=== PATIENT | male | born 1975 | race Caucasian/White ===

== ENCOUNTER → 2017-02-01 | Outpatient (CLI) | payer OTHER ==
--- NOTE | 2017-02-01 10:02 | REP ---
Clinical: Shortness of breath . Comparison: None . Technique: PA and lateral. Findings: The mediastinum and cardiac silhouette are normal. The lung trivedi are clear and without acute consolidation, effusion, or pneumothorax. The skeletal structures are intact and normal. Impression: 1. No acute cardiopulmonary process. Signed by Roque Rnicon MD 02/01/2017 09:53 A
== END ==
LOC: M SMT 09:34
PROVIDERS: ATTEND Nurse Practitioner Adult Health
DX: R06.02 Shortness of breath (principal)

== ENCOUNTER → 2017-03-01 | Outpatient (CLI) | payer OTHER ==
[~2017-03-01] MED LIST: METHACHOLINE KIT (J7674) INH ONE
--- NOTE | 2017-03-01 08:29 | PFTRPT ---
Site: [facility], [address] [place], [address] ID: [id number] Name: NEHAL ALBARADO III Doctor: Светлана Mcgrath Tech: Srinivasa JIMÉNEZ RRT Age: 41 Sex: Male Race: Height: 64.00 Inches Weight: 156.00 Lbs BSA: 1.76 Diagnosis: R06.02 third dose of methacholine. Pt was given four puffs of albuterol for postbronchodilator. Pre-Bronch Post-Bronch Pred Actual %Pred Actual %Chng SPIROMETRY FVC (L) 4.34 4.99 115 4.69 -6 FEV1 (L) 3.49 3.51 100 3.31 -5 FEV1/FVC (%) 80 70 87 70 FEF 25% (L/sec) 7.22 6.74 93 5.88 -12 FEF 50% (L/sec) 5.23 2.99 57 2.48 -17 FEF 75% (L/sec) 1.74 0.77 44 0.51 -33 FEF 25-75% (L/sec) 3.45 2.25 65 1.70 -24 FEF Max (L/sec) 8.88 8.66 97 9.16 5 FIVC (L) 4.77 3.73 -21 FIF 50% (L/sec) 5.25 7.12 135 7.35 3 FIF Max (L/sec) 7.31 7.94 8
== END ==
LOC: M CARPUL 07:30
PROVIDERS: ATTEND Nurse Practitioner Adult Health
DX: R06.02 Shortness of breath (principal)

== ENCOUNTER 2018-09-29 22:15 | Inpatient (IN) | payer OTHER ==
[~2018-09-29] VITALS: Ht 162.6 cm; Wt 72.6 kg
[2018-09-29] MEDS ORDERED: OMEP10CASR PO (22:34)
[2018-09-29 23:00] LABS: BASO % 0.2 % (0.0-1.0); EOS # 0.2 10^3/uL (0.0-0.50); EOS % 1.1 % (0.0-3.0); HEMATOCRIT 39.3 % (42.0-52.0); HEMOGLOBIN 13.4 g/dl (13.5-17.5); LYMPH # 2.7 10^3/uL (1.5-4.5); LYMPH % 20.9 % (24.0-44.0); MEAN CORPUSCULAR HEMOGLOBIN 30.4 pg (27.0-33.0); MEAN CORPUSCULAR HGB CONC 34.1 g/dl (32.0-36.5); MEAN CORPUSCULAR VOLUME 89.1 fl (80.0-96.0); MONO # 1.3 10^3/uL (0.0-0.8); MONO % 10.2 % (0.0-5.0); NEUTROPHILS # 8.8 10^3/uL (1.8-7.7); NEUTROPHILS % 67.3 % (36.0-66.0); PLATELET COUNT, AUTOMATED 293 10^3/uL (150-450); RED BLOOD COUNT 4.41 10^6/uL (4.30-6.10); WHITE BLOOD COUNT 13.1 10^3/uL (4.0-10.0)
[2018-09-29] MEDS ORDERED: NS 1,000 ML IV ONE (23:15)
[2018-09-29 23:37] LABS: ALBUMIN 3.6 GM/DL (3.2-5.2); BILIRUBIN,DIRECT 0.1 MG/DL (0.0-0.2); BILIRUBIN,TOTAL 0.3 MG/DL (0.2-1.0); TOTAL PROTEIN 7.2 GM/DL (6.4-8.2)
[2018-09-30] MEDS ORDERED: NICOTINE 21MG/24HR 1 EA TRANSDERMAL TD ONE (00:15)
--- NOTE | 2018-09-30 00:16 | REPVR ---
EXAM: CT Abdomen and Pelvis Without Contrast EXAM DATE/TIME: 09/29/2018 11:29 PM CLINICAL HISTORY: 43 years old, male; Abdominal pain; Flank; Other: Bilateral; Additional info: Bilat flank pain TECHNIQUE: Imaging protocol: Axial computed tomography images of the abdomen and pelvis without contrast. Coronal and sagittal reformatted images were created and reviewed. Radiation optimization: All CT scans at this facility use at least one of these dose optimization techniques: automated exposure control; mA and/or kV adjustment per patient size (includes targeted exams where dose is matched to clinical indication); or iterative reconstruction. COMPARISON: No relevant prior studies available. Study limitations: Evaluation for mass, inflammatory change, including bowel wall/fold thickening, viscera, and vasculature, is suboptimal without contrast. FINDINGS: LUNG BASES: Mild dependent atelectasis. VASCULAR: Major vasculature is within normal limits for noncontrast evaluation. PERITONEAL : No free air or free fluid. GI: No hiatal hernia. The stomach is mildly distended with ingested material. No perigastric or periduodenal inflammatory stranding. No significant asymmetric small bowel dilation to suggest obstruction. There is no focal mesenteric inflammatory stranding. Small nonspecific mesenteric lymph nodes are seen. Scattered fecal material and gas within portions of the colon. Portions of the distal colon and rectum appear slightly thick walled but this may be artifact secondary to insufficient distention. No pericolonic inflammatory stranding. No evidence of acute diverticulitis. The appendix does not appear inflamed. HEPATOBILIARY, PANCREAS, SPLEEN: Sagittal hepatic length is 18.5 cm. Hepatic attenuation is consistent with mild fatty infiltration. Partially contracted gallbladder. No calcified gallstones, pericholecystic fluid or stranding. No pancreatic inflammation. Spleen not enlarged. Small splenule's are noted. ADRENALS, KIDNEYS, BLADDER, RETROPERITONEAL: Adrenals within normal limits. No hydronephrosis. Punctate nonobstructing right lower pole renal calculus. No perinephric stranding or fluid. No ureteral calculi. No calculi within the urinary bladder. There is a calcification within the lower left pelvis, felt likely to represent a phlebolith. No perivesical stranding. The prostate does not appear enlarged. No bladder wall thickening. MUSCULOSKELETAL: Small fat containing umbilical hernia. IMPRESSION: Punctate nonobstructing right lower pole renal calculus. No ureteral or obstructing calculi are seen. No free air, free fluid or focal mesenteric inflammation. Other incidental findings and study limitations discussed above. Electronically signed by: Russ Randall On 09/30/2018 00:15:45 AM
[2018-09-30] MEDS ORDERED: OMEP20CA4 PO (00:48)
[2018-09-30] MEDS ORDERED: CLAR5TAB7 PO (00:48)
[2018-09-30] MEDS ORDERED: NS 1,000 ML IV SCH ×2 (01:15→09:30)
--- NOTE | 2018-09-30 01:38 | HPEPDOC ---
General Date of Admission Sep 30, 2018 at 01:03 Date of Service: Sep 30, 2018 Chief Complaint The patient is a 43-year-old male admitted with a reason for visit of ARF. History of Present Illness 43-year-old male with past medical history of GERD and seasonal allergies presented to the ER with a chief complaint of bilateral flank pain. The patient states that his illness started last Monday when he had 5 episodes of nonbloody diarrhea per day for 2 days. In addition, the patient states that he was having some generalized abdominal pain, but denied any fevers, chills, sick contacts, ingestion of foreign foods, or recent antibiotic use. The next day, the patient states he had [place] 45 [place] He stated that he started to feel lightheaded and dizzy and could not complete the regimen. Over the next 4 days, the patient states that he took 2-3 tablets of 800 mg ibuprofen daily for muscle aches and fatigue. The patient states that that he did not take adequate by mouth intake of fluids during this time. Instead, the patient states that he drinks 2-3 16 ounce energy drinks ([employer], Monster) and has 4 cups of coffee on a daily basis. He states that his bilateral flank pain and generalized fatigue led him to go to the urgent car [facility] first, to which he was then referred to here for further evaluation and management of acute renal failure. Home Medications Scheduled Omeprazole (Omeprazole) 20 Mg Capsule.dr, 20 MG PO DAILY, (Reported) Scheduled PRN Loratadine/Pseudoephedrine (Claritin-D 12 Hour Tablet) 1 Each Tab.er.12h, 1 TAB PO BID PRN for CONGESTION, (Reported) Allergies Coded Allergies: No Known Allergies (Unverified , 02/28/17) Past Medical History Medical History As noted in HPI. 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 Originally from the [place], [place] area. Review of Systems Other systems 10 point review of systems negative unless otherwise specified HPI. Physical Examination General Exam: Positive: Alert, Cooperative, No Acute Distress ENT Exam: Positive: Atraumatic, Mucous membr. moist/pink Neck Exam: Negative: JVD Chest Exam: Positive: Clear to auscultation, Normal air movement Heart Exam: Positive: Rate Normal, Normal S1, Normal S2 Abdomen Exam: Positive: Soft; Negative: Tenderness Extremity Exam: Negative: Tenderness, Swelling Psych Exam: Positive: Oriented x 3 Vital Signs Vital Signs Date Time Temp Pulse Resp B/P (MAP) Pulse Ox O2 Delivery O2 Flow Rate FiO2 09/29/18 22:56 09/29/18 22:16 97.2 72 16 99 Room Air Laboratory Data Labs 24H Laboratory Tests 2 09/29/18 22:47: Immature Granulocyte % (Auto) 0.3, White Blood Count 13.1H, Red Blood Count 4.41, Hemoglobin 13.4L, Hematocrit 39.3L, Mean Corpuscular Volume 89.1, Mean Corpuscular Hemoglobin 30.4, Mean Corpuscular Hemoglobin Concent 34.1, Red Cell Distribution Width 12.8, Platelet Count 293, Neutrophils (%) (Auto) 67.3H, Lymphocytes (%) (Auto) 20.9L, Monocytes (%) (Auto) 10.2H, Eosinophils (%) (Auto) 1.1, Basophils (%) (Auto) 0.2, Neutrophils # (Auto) 8.8H, Lymphocytes # (Auto) 2.7, Monocytes # (Auto) 1.3H, Eosinophils # (Auto) 0.2, Basophils # (Auto) 0.0, Nucleated Red Blood Cells % (auto) 0.0, Urine Color STRAW, Urine Appearance CLEAR, Urine pH 5.0, Urine Specific [place] 1.003, Urine Protein NEGATIVE, Urine Glucose (UA) NEGATIVE, Urine Ketones NEGATIVE, Urine Blood 1+H, Urine Nitrite NEGATIVE, Urine Bilirubin NEGATIVE, Urine Urobilinogen 0.2, Urine Leukocyte Esterase NEGATIVE, Urine WBC (Auto) 0, Urine RBC (Auto) 0, Urine Hyaline Casts (Auto) 0, Urine Bacteria (Auto) 1+H, Urine Squamous Epithelial Cells 0, Urine Sperm (Auto) , Aspartate Amino Transf (AST/SGOT) 12, Alanine Aminotransferase (ALT/SGPT) 10L, Alkaline Phosphatase 84, Total Bilirubin 0.3, Direct Bilirubin 0.1, Total Protein 7.2, Albumin 3.6, Albumin/Globulin Ratio 1.00, Lipase 243 09/29/18 22:56: POC Glucose (Misc Panel) 84, POC Sodium (Misc Panel) 137, POC Potassium (Misc Panel) 4.3, POC Chloride (Misc Panel) 100, POC Total CO2 (Misc Panel) 27.0, POC Blood Urea Nitrogen (Misc Panel 36H, POC Ionized Calcium (Misc Panel) 4.5, POC Creatinine (Misc Panel) 7.3H, POC Hematocrit (Misc Panel) 39.0 09/29/18 23:11: Lactic Acid Level 0.7 CBC/BMP Laboratory Tests 09/29/18 22:47 Red Blood Count 4.41, Mean Corpuscular Volume 89.1, Mean Corpuscular Hemoglobin 30.4, Mean Corpuscular Hemoglobin Concent 34.1, Red Cell Distribution Width 12.8, Neutrophils (%) (Auto) 67.3 H, Lymphocytes (%) (Auto) 20.9 L, Monocytes (%) (Auto) 10.2 H, Eosinophils (%) (Auto) 1.1, Basophils (%) (Auto) 0.2, Neutrophils # (Auto) 8.8 H, Lymphocytes # (Auto) 2.7, Monocytes # (Auto) 1.3 H, Eosinophils # (Auto) 0.2, Basophils # (Auto) 0.0 Plan / VTE VTE Prophylaxis Ordered?: No VTE Exclusion Mechanical Proph: Low Risk for VTE Plan Plan Acute Renal Failure 2/2 Multifactorial Etiology Including: Diarrhea with Dehydration, Ibuprofen Use, Excess Energy Drink and Coffee Consumption in the setting of intensive Physical Exercise Electrolytes stable, patient states that he is making a normal amount of urine, no indication for dialysis at this time CT Abd/Pel with no acute pathology IVF Hydration ordered Urine Lytes Avoid Nephrotoxins We will cont to monitor and consult Nephro in the AM DVT Prophylaxis OOB, Ambulation encouraged NIVIA BOLTON MD Sep 30, 2018 01:37
[2018-09-30] MEDS: ACETAMINOPHEN TAB 650MG DOSE (2X325MG) PO PRN ×3 (07:59→20:26)
--- NOTE | 2018-09-30 08:52 | REP ---
Chest x-ray: Two views. History: Cough . Comparison study: February 01, 2017 . Findings: The lungs are well inflated and free of infiltrate. The pleural angles are sharp. The heart size is normal. Pulmonary vasculature is not increased. No significant bony abnormality is seen. Impression: Negative chest x-ray. Electronically Signed by Bhaskar Mckay MD 09/30/2018 08:44 A
[2018-09-30] MEDS ORDERED: NICOTINE 14 MG/24 HR TRANSDERMAL TD SCH (09:00)
[2018-09-30 09:15] VITALS: BP 126/86
[2018-09-30 09:37] LABS: MAGNESIUM LEVEL 2.5 MG/DL (1.8-2.4)
[2018-09-30 09:51] LABS: HEMATOCRIT 39.7 % (42.0-52.0); HEMOGLOBIN 13.5 g/dl (13.5-17.5); MEAN CORPUSCULAR HEMOGLOBIN 30.6 pg (27.0-33.0); PLATELET COUNT, AUTOMATED 288 10^3/uL (150-450); RED BLOOD COUNT 4.41 10^6/uL (4.30-6.10); WHITE BLOOD COUNT 13.1 10^3/uL (4.0-10.0)
--- NOTE | 2018-09-30 10:12 | REP ---
Urinary tract sonogram: History: Acute renal failure. Comparison: CT study September 29, 2018. Findings: Scanning at the level of the urinary bladder shows no abnormality. Prostate dimensions by transabdominal sonography are 3.0 x 2.7 x 3.1 cm, 13.1 ml calculated volume. Filled bladder volume calculated at 505 ml. Renal cortical echogenicity pattern is normal bilaterally and contours are smooth. There is no evidence of hydronephrosis, cyst, or mass in either kidney. The right kidney measures 12.7 x 6.6 x 6.5 cm. There are too small shadowing echogenic foci in the right mid kidney question a tiny intrarenal calculus. Left renal dimensions are 11.5 x 7.0 x 7.6 cm. Impression: Question tiny intrarenal calculus right kidney otherwise negative urinary tract sonography. Electronically Signed by Bhaskar Mckay MD 09/30/2018 10:04 A
[2018-09-30 10:16] LABS: ALBUMIN 3.3 GM/DL (3.2-5.2); ALT/SGPT 12 U/L (12-78); BILIRUBIN,TOTAL 0.3 MG/DL (0.2-1.0); BLOOD UREA NITROGEN 32 MG/DL (7-18); CALCIUM LEVEL 8.3 MG/DL (8.5-10.1); CARBON DIOXIDE LEVEL 25 MEQ/L (21-32); CHLORIDE LEVEL 111 MEQ/L (98-107); CK-MB VALUE MASS 1.5 NG/ML (<3.6); CPK CREATINE PHOSPHOKINASE 137 U/L (39-308); CREATININE FOR GFR 6.97 MG/DL (0.70-1.30); GLOMERULAR FILTRATION RATE 9.3 (>60); GLUCOSE, FASTING 91 MG/DL (70-100); MAGNESIUM LEVEL 2.3 MG/DL (1.8-2.4); MB/CK RELATIVE INDEX 1.09 (< OR =4); SODIUM LEVEL 140 MEQ/L (136-145); TOTAL PROTEIN 6.7 GM/DL (6.4-8.2); TROPONIN I < 0.02 NG/ML (< 0.10)
--- NOTE | 2018-09-30 10:59 | IPNPDOC ---
Date Seen The patient was seen on 09/30/18. Progress Note SUBJECTIVE: pt denies sore throat, fever, chills, difficulty swallowing, but admits to advil 800mg bid use at home. creatinine and hyperkalemia unchanged.slight cough ,"but I smoke," without sputum production, and sob without wheezing. urine output not documented. OBJECTIVE: Physical Examination VITALS: PLS SEE BELOW General Exam: Positive: Alert, Cooperative, No Acute Distress ENT Exam: Positive: Atraumatic, Mucous membr. moist/pink Neck Exam: Negative: JVD Chest Exam: Positive: Clear to auscultation, Normal air movement Heart Exam: Positive: Rate Normal, Normal S1, Normal S2 Abdomen Exam: Positive: Soft; Negative: Tenderness Extremity Exam: Negative: Tenderness, Swelling Psych Exam: Positive: Oriented x 3 LABORATORY DATA, IMAGING STUDIES: PLS SEE BELOW CT abd/pelvis: No hydronephrosis. Punctate nonobstructing right lower pole renal calculus. No perinephric stranding or fluid. No ureteral calculi. No calculi within the urinary bladder. There is a calcification within the lower left pelvis, felt likely to represent a phlebolith. No perivesical stranding. The prostate does not appear enlarged. No bladder wall thickening. ASSESSMENT AND PLAN: 43-year-old male with past medical history of GERD and seasonal allergies presented to the ER with a chief complaint of bilateral flank pain. The patient states that his illness started last Monday when he had 5 episodes of nonbloody diarrhea per day for 2 days. In addition, the patient states that he was having some generalized abdominal pain, but denied any fevers, chills, sick contacts, ingestion of foreign foods, or recent antibiotic use. The next day, the patient states he had an extensive 45 [place] He stated that he started to feel lightheaded and dizzy and could not complete the regimen. Over the next 4 days, the patient states that he took 2-3 tablets of 800 mg ibuprofen daily for muscle aches and fatigue. The patient states that that he did not take adequate by mouth intake of fluids during this time. Instead, the patient states that he drinks 2-3 16 ounce energy drinks ([employer], Monster) and has 4 cups of coffee on a daily basis. He states that his bilateral flank pain and generalized fatigue led him to go to the urgent care first, to which he was then referred to here for further evaluation and management of acute renal failure. Acute Renal Failure 2/2 Multifactorial Etiology Including: Diarrhea with Dehydration, Ibuprofen Use, Excess Energy Drink and Coffee Consumption in the setting of intensive Physical Exercise Electrolytes stable, patient states that he is making a normal amount of urine, no indication for dialysis at this time CT Abd/Pel reviewed IVF Hydration ordered Urine Lytes Avoid Nephrotoxins check myoglobin / ck to rule out rhabdo, strep screen, HAZEL, cryoglobulins, hepatitis serology, urine for proteinuria awaiting repeat bmp to check for metabolic acidosis, hyperkalemia. no signs of fluid overload, and monitor urine output and weigh daily if pt has metab acidosis with hyperkalemia, may benefit from bicarb iv gtt with ionized calcium monitoring check psa, post void residual with bladder scans tor ule out postobstructive uropathy renal us Nonobstructing kidney stones pain control ivfluids denies dysuria urgency frequency ua -no signs of infection Hyperkalemia -if pt has metab acidosis with hyperkalemia, may benefit from bicarb iv gtt with ionized calcium monitoring -ekg to rule out tenting, sine wave, may need to give calciumgluconate, insuline, bicarb gtt GERD ppi DVT Prophylaxis OOB, Ambulation encouraged VS, I&O, 24H, Fishbone Vital Signs/I&O Vital Signs Date Time Temp Pulse Resp B/P (MAP) Pulse Ox O2 Delivery O2 Flow Rate FiO2 09/30/18 07:52 97.5 81 16 137/90 (106) 93 Room Air I&O- Last 24 Hours up to 6 AM0 09/30/18 06:00 Intake Total 1000 ml Balance 1000 ml Laboratory Data 24H LABS Laboratory Tests 2 09/29/18 22:47: Immature Granulocyte % (Auto) 0.3, White Blood Count 13.1H, Red Blood Count 4.41, Hemoglobin 13.4L, Hematocrit 39.3L, Mean Corpuscular Volume 89.1, Mean Corpuscular Hemoglobin 30.4, Mean Corpuscular Hemoglobin Concent 34.1, Red Cell Distribution Width 12.8, Platelet Count 293, Neutrophils (%) (Auto) 67.3H, Lym phocytes (%) (Auto) 20.9L, Monocytes (%) (Auto) 10.2H, Eosinophils (%) (Auto) 1.1, Basophils (%) (Auto) 0.2, Neutrophils # (Auto) 8.8H, Lymphocytes # (Auto) 2.7, Monocytes # (Auto) 1.3H, Eosinophils # (Auto) 0.2, Basophils # (Auto) 0.0, Nucleated Red Blood Cells % (auto) 0.0, Urine Color STRAW, Urine Appearance CLEAR, Urine pH 5.0, Urine Specific [place] 1.003, Urine Protein NEGATIVE, Urine Glucose (UA) NEGATIVE, Urine Ketones NEGATIVE, Urine Blood 1+H, Urine Nitrite NEGATIVE, Urine Bilirubin NEGATIVE, Urine Urobilinogen 0.2, Urine Leukocyte Esterase NEGATIVE, Urine WBC (Auto) 0, Urine RBC (Auto) 0, Urine Hyaline Casts (Auto) 0, Urine Bacteria (Auto) 1+H, Urine Squamous Epithelial Cells 0, Urine Sperm (Auto) , Aspartate Amino Transf (AST/SGOT) 12, Alanine Aminotransferase (ALT/SGPT) 10L, Alkaline Phosphatase 84, Total Bilirubin 0.3, Direct Bilirubin 0.1, Total Protein 7.2, Albumin 3.6, Albumin/Globulin Ratio 1.00, Lipase 243 09/29/18 22:56: POC Glucose (Misc Panel) 84, POC Sodium (Misc Panel) 137, POC Potassium (Misc Panel) 4.3, POC Chloride (Misc Panel) 100, POC Total CO2 (Misc Panel) 27.0, POC Blood Urea Nitrogen (Misc Panel 36H, POC Ionized Calcium (Misc Panel) 4.5, POC Creatinine (Misc Panel) 7.3H, POC Hematocrit (Misc Panel) 39.0 09/29/18 23:11: Lactic Acid Level 0.7 CBC/BMP Laboratory Tests 09/29/18 22:47 Red Blood Count 4.41, Mean Corpuscular Volume 89.1, Mean Corpuscular Hemoglobin 30.4, Mean Corpuscular Hemoglobin Concent 34.1, Red Cell Distribution Width 12.8, Neutrophils (%) (Auto) 67.3 H, Lymphocytes (%) (Auto) 20.9 L, Monocytes (%) (Auto) 10.2 H, Eosinophils (%) (Auto) 1.1, Basophils (%) (Auto) 0.2, Neutrophils # (Auto) 8.8 H, Lymphocytes # (Auto) 2.7, Monocytes # (Auto) 1.3 H, Eosinophils # (Auto) 0.2, Basophils # (Auto) 0.0 TG MARCH MD Sep 30, 2018 08:56
[2018-09-30] MEDS ORDERED: MORPHINE 4 MG/ML 1ML VIAL/SYRINGE (J2270) IV PRN (11:00)
[2018-09-30] MEDS ORDERED: CALCIUM GLUCONATE 1,000 MG in D5W MINI-BAG PLUS 100 ML IV ONE ×2 (11:00→19:00)
[2018-09-30 11:15] VITALS: BP 120/74
--- NOTE | 2018-09-30 11:58 | ECGEPIP ---
[facility] Test Date: 2018-09-30 Pat Name: NEHAL ALBARADO Department: Room: [place] [address] Gender: Male [employer] Aide: LETICIA : 1975 Requested By: TG Ortega Order Number: [id number] Reading MD: Grace Robins Measurements Intervals [place] Rate: 51 P: 17 CA: 147 QRS: 60 QRSD: 106 T: 67 QT: 393 QTc: 362 Interpretive Statements SINUS BRADYCARDIA LOW VOLTAGE LIMB LEADS NO PRIOR Electronically Signed on 09-30-2018 11:58:12 EDT by Grace Robins
[2018-09-30 12:55] LABS: CALCIUM LEVEL 7.7 MG/DL (8.5-10.1); CREATININE FOR GFR 6.35 MG/DL (0.70-1.30); GLOMERULAR FILTRATION RATE 10.4 (>60); POTASSIUM SERUM 4.7 MEQ/L (3.5-5.1)
[2018-09-30 14:00] VITALS: BP 141/84
[2018-09-30] MEDS: SODIUM BICARBONATE 150 MEQ in STERILE WATER LITER BAG 1,000 ML IV SCH (15:10)
[2018-09-30 18:38] LABS: CALCIUM LEVEL 8.3 MG/DL (8.5-10.1); CREATININE FOR GFR 6.38 MG/DL (0.70-1.30); GLOMERULAR FILTRATION RATE 10.3 (>60)
[2018-09-30] MEDS: NICOTINE 14 MG/24 HR TRANSDERMAL TD SCH (20:07)
[2018-09-30 22:00] VITALS: BP 150/85
[2018-10-01 01:00] LABS: CALCIUM LEVEL 8.2 MG/DL (8.5-10.1); CREATININE FOR GFR 6.12 MG/DL (0.70-1.30); GLOMERULAR FILTRATION RATE 10.8 (>60); POTASSIUM SERUM 5.2 MEQ/L (3.5-5.1)
[2018-10-01] MEDS: SODIUM BICARBONATE 150 MEQ in STERILE WATER LITER BAG 1,000 ML IV SCH (03:44)
[2018-10-01 06:00] VITALS: BP 150/78
[2018-10-01 06:03] LABS: HEMATOCRIT 37.1 % (42.0-52.0); HEMOGLOBIN 12.3 g/dl (13.5-17.5); MEAN CORPUSCULAR HEMOGLOBIN 29.1 pg (27.0-33.0); MEAN CORPUSCULAR HGB CONC 33.2 g/dl (32.0-36.5); MEAN CORPUSCULAR VOLUME 87.9 fl (80.0-96.0); PLATELET COUNT, AUTOMATED 285 10^3/uL (150-450); RED BLOOD COUNT 4.22 10^6/uL (4.30-6.10); WHITE BLOOD COUNT 12.7 10^3/uL (4.0-10.0)
[2018-10-01] MEDS: ACETAMINOPHEN TAB 650MG DOSE (2X325MG) PO PRN (06:20)
[2018-10-01 06:36] LABS: ALBUMIN 2.8 GM/DL (3.2-5.2); BILIRUBIN,TOTAL 0.3 MG/DL (0.2-1.0); CALCIUM LEVEL 8.4 MG/DL (8.5-10.1); CREATININE FOR GFR 6.03 MG/DL (0.70-1.30); POTASSIUM SERUM 4.8 MEQ/L (3.5-5.1); TOTAL PROTEIN 6.7 GM/DL (6.4-8.2)
[2018-10-01] MEDS ORDERED: SODIUM BICARBONATE 150 MEQ in D5W 1,000 ML IV SCH (07:00)
--- NOTE | 2018-10-01 07:48 | REP ---
Portable chest, 06:16 a.m., single AP view with the patient upright: Comparison is 09/29/2018. The lung trivedi are clear. Cardiac size is normal. The liliane, mediastinum, and skeletal structures are unremarkable. Impression: Negative portable chest. Electronically Signed by Paresh Watson MD 10/01/2018 07:40 A
[2018-10-01] MEDS: OMEPRAZOLE 20 MG CAP PO SCH (08:36)
[2018-10-01 10:55] LABS: MYOGLOBIN SCREEN, URINE NEGATIVE (NEGATIVE)
[2018-10-01 11:03] LABS: AMORPHOUS SEDIMENT SMALL (NEGATIVE); APPEARANCE, URINE CLEAR (CLEAR); BACTERIA, URINE AUTO NEGATIVE (NEGATIVE); BILIRUBIN, URINE AUTO NEGATIVE (NEGATIVE); BLOOD, URINE BLOOD NEGATIVE (NEGATIVE); COLOR, URINE STRAW (YELLOW); GLUCOSE, URINE (UA) AUTO NEGATIVE (NEGATIVE); KETONE, URINE AUTO NEGATIVE (NEGATIVE); LEUKOCYTE ESTERASE, URINE AUTO NEGATIVE (NEGATIVE); NITRITE, URINE AUTO NEGATIVE (NEGATIVE); PROTEIN, URINE AUTO NEGATIVE (NEGATIVE); RBC, URINE AUTO 1 /HPF (0-3); SPECIFIC GRAVITY URINE AUTO 1.006 (1.002-1.035); SQUAMOUS EPITHELIAL CELL UR AU 0 /HPF (0-6); UROBILINOGEN, URINE AUTO 0.2 mg/dL (0.0-2.0); WBC, URINE AUTO 2 /HPF (0-3)
[2018-10-01 11:20] LABS: URINE TOTAL PROTEIN 12.6 MG/DL (0-12)
[2018-10-01 11:23] LABS: CREATININE,RANDOM URINE 64.8 MG/DL; SODIUM,RANDOM URINE 85 MEQ/L; TOTAL PROTEIN,RANDOM URINE 12.8 MG/DL (0.0-12.0)
[2018-10-01 11:52] LABS: HEPATITIS A ANTIBODY IGM NEGATIVE (NEGATIVE); HEPATITIS B CORE ANTIBODY IGM NEGATIVE (NEGATIVE); HEPATITIS B SURFACE ANTIGEN NEGATIVE (NEGATIVE); HEPATITIS C VIRUS ABY INDEX 0.1 INDEX (<0.8)
[2018-10-01 12:18] LABS: CRYOGLOBULINS NEGATIVE (NEGATIVE)
[2018-10-01 12:51] LABS: CALCIUM LEVEL 8.7 MG/DL (8.5-10.1); CREATININE FOR GFR 5.66 MG/DL (0.70-1.30); GLOMERULAR FILTRATION RATE 11.9 (>60); POTASSIUM SERUM 4.4 MEQ/L (3.5-5.1)
[2018-10-01 14:00] VITALS: BP 142/78
[2018-10-01 18:49] LABS: CALCIUM LEVEL 8.2 MG/DL (8.5-10.1); CREATININE FOR GFR 5.2 MG/DL (0.70-1.30); GLOMERULAR FILTRATION RATE 13.1 (>60); POTASSIUM SERUM 4.2 MEQ/L (3.5-5.1)
--- NOTE | 2018-10-01 18:58 | IPNPDOC ---
Date Seen The patient was seen on 10/01/18. Progress Note SUBJECTIVE: input 5liters/[id number] on iv bicarb gtt with improvement in potassium level. . some sob and cough productive of white sputum without fever or chills. no abd pain,hematuria,flank pain, ua negative. still with gfr10 stage 5 renal failure. renal us: no hydronephrosis. nonobstructing stone. OBJECTIVE: Physical Examination VITALS: PLS SEE BELOW General Exam: Positive: Alert, Cooperative, No Acute Distress ENT Exam: Positive: Atraumatic, Mucous membr. moist/pink Neck Exam: Negative: JVD Chest Exam: Positive:diminished at the bases.: Normal air movement Heart Exam: Positive: Rate Normal, Normal S1, Normal S2 Abdomen Exam: Positive: Soft; Negative: Tenderness Extremity Exam: Negative: Tenderness, Swelling Psych Exam: Positive: Oriented x 3 LABORATORY DATA, IMAGING STUDIES: PLS SEE BELOW CT abd/pelvis: No hydronephrosis. Punctate nonobstructing right lower pole renal calculus. No perinephric stranding or fluid. No ureteral calculi. No calculi within the urinary bladder. There is a calcification within the lower left pelvis, felt likely to represent a phlebolith. No perivesical stranding. The prostate does not appear enlarged. No bladder wall thickening. ASSESSMENT AND PLAN: 43-year-old male with past medical history of GERD and seasonal allergies pr esented to the ER with a chief complaint of bilateral flank pain. The patient states that his illness started last Monday when he had 5 episodes of nonbloody diarrhea per day for 2 days. In addition, the patient states that he was having some generalized abdominal pain, but denied any fevers, chills, sick contacts, ingestion of foreign foods, or recent antibiotic use. The next day, the patient states he had [place] extensive 45 [place] He stated that he started to feel lightheaded and dizzy and could not complete the regimen. Over the next 4 days, the patient states that he took 2-3 tablets of 800 mg ibuprofen daily for muscle aches and fatigue. The patient states that that he did not take adequate by mouth intake of fluids during this time. Instead, the patient states that he drinks 2-3 16 ounce energy drinks ([employer], [employer]) and has 4 cups of coffee on a daily basis. He states that his bilateral flank pain and generalized fatigue led him to go to the urgent care first, to which he was then referred to here for further evaluation and m anagement of acute renal failure. Acute Renal Failure 2/2 Multifactorial Etiology Including: Diarrhea with Dehydration, Ibuprofen Use, Excess Energy Drink and Coffee Consumption in the setting of intensive Physical Exercise Electrolytes stable, patient states that he is making a normal amount of urine, no indication for dialysis at this time CT Abd/Pel reviewed: nonobstructing kidney stones IVF Hydration ordered without significant improvement, now with cough. repeat CXR pending Urine Lytes Avoid Nephrotoxins reviewed myoglobin / ck to rule out rhabdo, strep screen, HAZEL, cryoglobulins, hepatitis serology, urine for proteinuria serial bmp with persistent hyperkalemia no signs of fluid overload, and monitor urine output and weigh daily on bicarb iv gtt with ionized calcium monitoring renal us without obstructive uropathy nephrology consulted for management Hypernatremia nephrology consulted for management Nonobstructing kidney stones pain control ivfluids denies dysuria urgency frequency ua -no signs of infection Hyperkalemia -persistent despite bicarb iv gtt with ionized calcium monitoring -on telemetry GERD ppi DVT Prophylaxis OOB, Ambulation encouraged VS, I&O, 24H, Fishbone Vital Signs/I&O Vital Signs Date Time Temp Pulse Resp B/P (MAP) Pulse Ox O2 Delivery O2 Flow Rate FiO2 09/30/18 22:00 97.2 56 18 150/85 (106) 99 09/30/18 07:52 Room Air I&O- Last 24 Hours up to 6 AM 10/01/18 06:00 Intake Total 3990 ml Output Total 1900 ml Balance 2090 ml Laboratory Data 24H LABS Laboratory Tests 2 09/30/18 09:28: Nucleated Red Blood Cells % (auto) 0.0 09/30/18 09:29: Anion Gap 4L, Glomerular Filtration Rate 9.3L, Blood Urea Nitrogen 32H, Creatinine 6.97H, Sodium Level 140, Potassium Level 6.0H, Chloride Level 111H, Carbon Dioxide Level 25, Calcium Level 8.3L, Aspartate Amino Transf (AST/SGOT) 14, Alanine Aminotransferase (ALT/SGPT) 12, Total Creatine Kinase 137, Alkaline Phosphatase 81, Total Bilirubin 0.3, Total Protein 6.7, Albumin 3.3, Magnesium Level 2.3, Creatine Kinase MB 1.5, Creatine Kinase MB Relative Index 1.09, Troponin I < 0.02, Total Protein (PEP) 6.7, Albumin/Globulin Ratio 0.97L 09/30/18 12:18: Anion Gap 5L, Glomerular Filtration Rate 10.4L, Blood Urea Nitrogen 32H, Creatinine 6.35H, Sodium Level 143, Potassium Level 4.7#, Chloride Level 114H, Carbon Dioxide Level 24, Calcium Level 7.7L, Whole Blood Ionized Calcium 4.4L 09/30/18 18:05: Anion Gap 5L, Glomerular Filtration Rate 10.3L, Blood Urea Nitrogen 31H, Creat inine 6.38H, Sodium Level 145, Potassium Level 5.0, Chloride Level 114H, Carbon Dioxide Level 26, Calcium Level 8.3L, Whole Blood Ionized Calcium 4.6 10/01/18 00:25: Anion Gap 6L, Glomerular Filtration Rate 10.8L, Blood Urea Nitrogen 35H, Creatinine 6.12H, Sodium Level 146H, Potassium Level 5.2H, Chloride Level 112H, Carbon Dioxide Level 28, Calcium Level 8.2L, Whole Blood Ionized Calcium 4.5 10/01/18 05:50: Whole Blood Ionized Calcium 4.5, Nucleated Red Blood Cells % (auto) 0.0 CBC/BMP Laboratory Tests 09/30/18 09:28 Red Blood Count 4.41, Mean Corpuscular Volume 90.0, Mean Corpuscular Hemoglobin 30.6, Mean Corpuscular Hemoglobin Concent 34.0, Red Cell Distribution Width 13.0 09/30/18 09:29 Calcium Level 8.3 L, Aspartate Amino Transf (AST/SGOT) 14, Alanine Aminotransferase (ALT/SGPT) 12, Total Creatine Kinase 137, Alkaline Phosphatase 81, Total Bilirubin 0.3, Total Protein 6.7, Albumin 3.3 09/30/18 12:18 Calcium Level 7.7 L 09/30/18 18:05 Calcium Level 8.3 L 10/01/18 00:25 Calcium Level 8.2 L 10/01/18 05:50 Red Blood Count 4.22 L, Mean Corpuscular Volume 87.9, Mean Corpuscular Hemoglobin 29.1, Mean Corpuscular Hemoglobin Concent 33.2, Red Cell Distribution Width 13.1 Microbiology Microbiology 09/30/18 Gastrointestinal Tract Panel (PCR), Ordered Pending 09/30/18 Group A Streptococcus Screen (RENÉE) - Final, Resulted 09/30/18 Group A Streptococcus Screen (RENEÉ), Resulted Pending TG MARCH MD Oct 01, 2018 06:13
[2018-10-01] MEDS: NICOTINE 14 MG/24 HR TRANSDERMAL TD SCH (19:47)
[2018-10-01] MEDS: NS 0.45% 1,000 ML IV SCH (20:43)
[2018-10-01] MEDS ORDERED: CALCIUM GLUCONATE 1,000 MG in D5W MINI-BAG PLUS 100 ML IV ONE (21:15)
[2018-10-01 22:00] VITALS: BP_SYST 125; BP_SYST 145; BP_DIAS 73; BP_DIAS 78
[2018-10-02 00:05] LABS: CALCIUM LEVEL 8.7 MG/DL (8.5-10.1); CREATININE FOR GFR 5.31 MG/DL (0.70-1.30); GLOMERULAR FILTRATION RATE 12.8 (>60)
--- NOTE | 2018-10-02 05:34 | CR ---
DATE OF CONSULTATION: 10/01/2018 REQUESTING PHYSICIAN: Dr. Mary Anne Persaud. REASON FOR CONSULTATION: Nonoliguric acute kidney injury. 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 He presented to the emergency room with a complaint of bilateral flank pain. The patient states he was in his usual state of health until last Monday when he started having recurrent and persistent episodes of watery diarrhea that lasted for three days about 4-5 watery bowel movements per day. He reports that he was also having some generalized low back aches and was taking 800 mg of ibuprofen three times a day. The patient on Monday had an extensive physical [place]. He started to feeling lightheaded and dizzy and could not complete his physical therapy. He stated that during this time period he did not hydrate that well. He denies any rashes, fevers, chills, travel, sick contacts, alternative or supplemental medications. He denies gross hematuria or foamy urine, chest pain, cough or shortness of breath. In the emergency room he found to have a creatinine of 6.9, a benign urine analysis and hyperkalemia. He was started on aggressive intravenous (IV) fluids with improvement in renal function and nephrology consultation was requested for the management of his acute kidney injury. PAST MEDICAL HISTORY: As mentioned above. PAST SURGICAL HISTORY: 1. [place] tooth removal. 2. Hernia repair. SOCIAL HISTORY: He is a current smoker. He reports occasional alcohol use. He denies drug. He is an active daily soldier. HOME MEDICATIONS: - ibuprofen - loratadine, taken as needed FAMILY HISTORY: He denies any family history of renal failure or dialysis dependent. REVIEW OF SYSTEMS: Constitutional: He denies fevers or chills. Eyes: He denies visual changes appearing. ENT: He denies rhinorrhea or epistaxis. Cardiac: He denies chest pain or palpitations. Respiratory: He denies shortness of breath, cough or hemoptysis. Gastrointestinal: He denies he denies nausea or vomiting. He had prior episodes of diarrhea that has resolved. Genitourinary: He denies dysuria, hematuria or foamy urine. Endocrine: He denies diabetes or history of polyuria, polydipsia. Hematologic: He denies easy bruising or bleeding. Neurologic: He denies seizures or syncope. He reports lightheadedness several days ago during physical therapy session. Skin: He denies any new rashes. He denies pruritus. The remainder of review of systems is negative or as per history of present illness (HPI). PHYSICAL EXAMINATION: Vital signs: Temperature 97.9, pulse 59, respiratory rate 18, blood pressure 142/78, saturating 98% on room air. Intake yesterday was 4.9 liters of urine, output yesterday was 1900. Urine output thus far today is 2200, weight in the bed scale today is 72.6 kg. General: The patient is seen sitting upright in bed, a well built male in no acute distress. HEENT/Neck: Extraocular muscles are intact. Tongue is moist. Neck is supple. There are no oral ulcers. Heart: Heart sounds S1-S2 regular rate and rhythm. No edema in the peripheries nor in the dependent area. Palpable peripheral pulses. Lungs: Lung sounds symmetric air entry bilaterally. No crackles, rales or wheeze. Abdomen: Soft and nontender. There are bowel sounds. Genitourinary: There is no suprapubic fullness. Extremities: Negative for edema, clubbing or cyanosis. Skin: Normal temperature and turgor. Neurologic: Oriented times four. No focal deficits. Psychiatric: Appropriate mood and effect. LABORATORY DATA: Sodium 143, potassium 4.2, bicarbonate 34, BUN 30, creatinine 5.2. IMAGING STUDIES: Renal ultrasound September 30 shows normal bilateral renal dimensions and no hydronephrosis. CT abdomen and pelvis September 29 without contrast shows a nonobstructing right lower pole renal calculus. Chest x-ray October 01 is negative. Lungs are clear. INPATIENT MEDICATIONS: I discontinued his bicarbonate containing fluids and I have switched him over to half normal saline (NS) at 80 mL an hour. He continues on: - Tylenol taken as needed - nicotine patch - Prilosec 20 mg by mouth daily ASSESSMENT/PLAN: PROBLEMS: 1. Nonoliguric kidney injury. Although the patient does not have any prior labs available for review and he states he has not had labs done for at least several years, he denies any known history of chronic kidney disease. Presumably his renal injury is all acute. His urinalysis times two specimens are both benign and negative for any protein and blood which essentially all but rules out glomerular disease. His acute kidney injury is likely due to diarrhea/dehydration/concomitant nonsteroidal anti-inflammatory drug (NSAID) use. He is already improving with aggressive IV fluids. There is no signs of rhabdo. His CPK level was normal. His renal ultrasound is also fairly unremarkable. He is on no nephrotoxic medications. I would continue with supportive care and IV fluids in this patient and his renal function is expected to continue to improve. 2. Metabolic alkalosis. Serum bicarbonate up to 34. It is iatrogenic and due to the sodium bicarbonate drip. I have discontinued the same and switched the fluids over to half normal saline (NS) at 88 mL an hour. 3. Hyperkalemia. It is resolved. It was due to acute kidney injury and NSAID use. His potassium has normalized and are expected to stay stable as his renal function continues to improve. 4. Hypocalcemia. Ionized calcium of 4.3. It is secondary to metabolic alkalosis. Sodium bicarbonate has already been stopped and he is ordered for a gram of calcium gluconate. 5. Thank you for involving me in the care of Mr. Steiner. I will be happy to follow him along with you.
[2018-10-02 05:49] LABS: HEMATOCRIT 35.9 % (42.0-52.0); HEMOGLOBIN 12.3 g/dl (13.5-17.5); MEAN CORPUSCULAR HEMOGLOBIN 30.2 pg (27.0-33.0); MEAN CORPUSCULAR HGB CONC 34.3 g/dl (32.0-36.5); MEAN CORPUSCULAR VOLUME 88.2 fl (80.0-96.0); PLATELET COUNT, AUTOMATED 272 10^3/uL (150-450); RED BLOOD COUNT 4.07 10^6/uL (4.30-6.10); WHITE BLOOD COUNT 13.1 10^3/uL (4.0-10.0)
[2018-10-02 06:00] VITALS: BP 137/74
[2018-10-02 06:05] LABS: ALBUMIN 2.9 GM/DL (3.2-5.2); BILIRUBIN,TOTAL 0.4 MG/DL (0.2-1.0); CALCIUM LEVEL 8.7 MG/DL (8.5-10.1); CREATININE FOR GFR 4.95 MG/DL (0.70-1.30); GLOMERULAR FILTRATION RATE 13.8 (>60); POTASSIUM SERUM 4.4 MEQ/L (3.5-5.1); TOTAL PROTEIN 6.9 GM/DL (6.4-8.2)
[2018-10-02] MEDS: OMEPRAZOLE 20 MG CAP PO SCH (08:30)
[2018-10-02] MEDS: NS 0.45% 1,000 ML IV SCH ×2 (09:15→21:29)
[2018-10-02 11:14] LABS: ALBUMIN 3.67 GM/DL (3.29-5.55); ALBUMIN % 54.8 % (55.8-66.1); ALPHA-1-GLOBULIN % 6.1 % (2.9-4.9); ALPHA-1-GLOBULINS 0.41 GM/DL (0.17-0.41); ALPHA-2-GLOBULINS % 13.4 % (7.1-11.8); BETA-1-GLOBULINS 0.34 GM/DL (0.28-0.60); BETA-1-GLOBULINS % 5.1 % (4.7-7.2); BETA-2-GLOBULINS 0.34 GM/DL (0.19-0.55); BETA-2-GLOBULINS % 5.1 % (3.2-6.5); GAMMA GLOBULIN % 15.5 % (11.1-18.8); GAMMA GLOBULINS 1.04 GM/DL (0.65-1.58)
--- NOTE | 2018-10-02 13:34 | IPN ---
DATE: 10/02/2018 SUBJECTIVE: Binh is seen and examined this morning at the bedside. Reports he has been up and ambulating. Denies any chest pain or shortness of breath. Reports no trouble with passage of urine. His labs show improvement in renal function. He continues on IV fluids. Vital signs: Temperature 98.1, pulse 69, respiratory rate 18, blood pressure 137/74, saturating 96% on room air. Intake yesterday was 3 liters, urine output yesterday was 2.2 liters. Weight on the bed scale today is not recorded. General: The patient is seen sitting up in bed, middle-aged male, well built, no distress. Awake, alert, comfortable, oriented times four. Extraocular muscles are intact. Tongue is moist. Neck is supple. Jugular veins are not elevated. Heart sounds are regular S1, S2. There are palpable peripheral pulses. There is no edema in the peripheries. The lungs are clear to auscultation bilaterally. No crackle, rale or rhonchus. Abdomen is soft and nontender. There are bowel sounds. Skin: Normal turgor and temperature. No rashes. Neurologic: Oriented times three. No focal deficits. Psychiatric: Appropriate mood and affect. LABORATORY DATA: Sodium 141, potassium 4.4, bicarbonate 35, BUN 29, creatinine 4.9. Urinalysis with no blood and no protein times two specimens. Hemoglobin 12.3. INPATIENT MEDICATIONS: He continues on half normal saline at 80 mL an hour. Remainder of medications are unchanged from prior. PROBLEMS: 1. Nonoliguric acute kidney injury presumably this kidney failure is all acute, although the patient has not had labs drawn in several years. There is improvement in his renal function with supportive care and IV fluids. His creatinine is down to 4.9. His urinalysis times two specimens were both essentially benign and negative for protein and blood, which all but rules out glomerular disease. Continue IV fluids at this time for another 24 hours and if his renal function continues to improve tomorrow we can consider discharge with followup in the nephrology office within 1 week. 2. Metabolic alkalosis, secondary to the sodium bicarbonate drip. He is now instead on half normal saline running at 80 mL per hour. 3. Hyperkalemia. It is resolved. It was due to acute kidney injury and NSAID use. His potassium level has normalized and is expected to stay stable as his renal function continues to improve. DISPOSITION: Continue on IV fluids for another 24 hours and repeat renal panel tomorrow morning. I would like to see his renal function further improve prior to discharge.
[2018-10-02 14:00] VITALS: BP 131/83
[2018-10-02 14:07] LABS: ANTINUCLEAR ANTIBODIES DIRECT Negative (Negative)
[2018-10-02 14:20] VITALS: BP 131/83
[2018-10-02 14:21] VITALS: BP 131/83
[2018-10-02] MEDS: NICOTINE 14 MG/24 HR TRANSDERMAL TD SCH (19:28)
--- NOTE | 2018-10-02 21:51 | IPNPDOC ---
Text Note Date of Service The patient was seen on 10/02/18. NOTE S: patient being seen for KERLINE . States feels good. no further diarrhea , no flank pain and states voiding well. States no hematuria or fever. no N, no V O: Vitals as below General: pleasant, NAD AAOX3 HRRR LCTA no W/R/R, no CVA tenderness Abdomen: soft NT ND NABS Ext: no edema CT SCAN abdomen reviewed with non obstructing stone Renal US: without obstructive uropathy A/P: Acute Renal Failure with Multifactorial Etiology Including: Diarrhea with Dehydration, Ibuprofen Use, Excess Energy Drink and Coffee Consumption in the setting of intensive Physical Exercise Nephrology consulted. IVF changed per nephrology and bicarb stopped. minimal improvement to creatine today. Hypernatremia - resolved Nonobstructing kidney stones - stable Hyperkalemia - RESOLVED GERD - stable with PPI DVT Prophylaxis: ambulation; SCD VS,Fishbone, I+O VS, Fishbone, I+O Laboratory Tests 10/01/18 18:05 Calcium Level 8.2 L 10/01/18 23:34 Calcium Level 8.7 10/02/18 05:28 Calcium Level 8.7, Red Blood Count 4.07 L, Mean Corpuscular Volume 88.2, Mean Corpuscular Hemoglobin 30.2, Mean Corpuscular Hemoglobin Concent 34.3, Red Cell Distribution Width 13.0, Aspartate Amino Transf (AST/SGOT) 16, Alanine Aminotransferase (ALT/SGPT) 10 L, Alkaline Phosphatase 79, Total Bilirubin 0.4, Total Protein 6.9, Albumin 2.9 L Vital Signs Date Time Temp Pulse Resp B/P (MAP) Pulse Ox O2 Delivery O2 Flow Rate FiO2 10/02/18 06:00 98.1 59 18 137/74 (95) 96 09/30/18 07:52 Room Air I&O- Last 24 Hours up to 6 AM 10/02/18 06:00 Intake Total 2720 ml Output Total 2200 ml Balance 520 ml REAGAN PHILLIPS DO Oct 02, 2018 13:46
[2018-10-02 22:00] VITALS: BP 140/81
[2018-10-03 06:00] VITALS: BP 137/84
[2018-10-03 06:26] LABS: HEMATOCRIT 35.7 % (42.0-52.0); HEMOGLOBIN 11.7 g/dl (13.5-17.5); MEAN CORPUSCULAR HEMOGLOBIN 29.3 pg (27.0-33.0); MEAN CORPUSCULAR HGB CONC 32.8 g/dl (32.0-36.5); MEAN CORPUSCULAR VOLUME 89.5 fl (80.0-96.0); PLATELET COUNT, AUTOMATED 282 10^3/uL (150-450); RED BLOOD COUNT 3.99 10^6/uL (4.30-6.10); WHITE BLOOD COUNT 11.7 10^3/uL (4.0-10.0)
[2018-10-03 06:46] LABS: ALBUMIN 2.9 GM/DL (3.2-5.2); BILIRUBIN,TOTAL 0.5 MG/DL (0.2-1.0); CALCIUM LEVEL 8.7 MG/DL (8.5-10.1); CREATININE FOR GFR 3.89 MG/DL (0.70-1.30); GLOMERULAR FILTRATION RATE 18.3 (>60); POTASSIUM SERUM 4.3 MEQ/L (3.5-5.1); TOTAL PROTEIN 6.9 GM/DL (6.4-8.2)
[2018-10-03] MEDS: OMEPRAZOLE 20 MG CAP PO SCH (09:00)
[2018-10-03] MEDS: NS 0.45% 1,000 ML IV SCH (10:30)
[2018-10-03] MEDS ORDERED: NICO14PA TD (13:34)
[2018-10-03] MEDS ORDERED: CLAR10CA3 PO (13:34)
--- NOTE | 2018-10-03 20:43 | IPN ---
DATE: 10/03/2018 SUBJECTIVE: Binh seen and examined this morning at the bedside. He remained on IV fluids over the past 24 hours. His renal function continues to improve. He denies any new complaints, has been ambulating. No chest pain, no shortness of breath. No trouble with voiding. We discussed discharge plans for him. Temperature 97.8, pulse 65, respiratory rate 15, blood pressure 137/84, saturating 97% on room air. Intake yesterday was 1820, urine output yesterday was 1900, weight in the bed scale today is not recorded. General: The patient is seen sitting out of bed to the chair, awake, alert, oriented x3. No acute distress. Extraocular muscles are intact. Tongue is moist. Neck is supple. Jugular veins are not elevated. Heart sounds are regular S1-S2, no murmurs and no edema. Lungs are clear to auscultation bilaterally. No crackle rale or rhonchus. Abdomen is soft and nontender. There are bowel sounds. The extremities are negative for edema, clubbing or cyanosis. Skin: Normal temperature and turgor. Neurologic: Oriented x3. No focal deficits. LABORATORY DATA: White count 11.7, hemoglobin 11.7, platelets 282, sodium 144, potassium 4.3, bicarbonate 32, BUN 29, creatinine 3.8 INPATIENT MEDICATIONS: He continues on half normal saline at 80 mL an hour. PROBLEMS: 1. Nonoliguric acute kidney injury. Presumably, this patient's kidney failure is acute, although he has not had any blood work drawn in the past several years and there is no baseline labs available for review. There is improvement in renal function with supportive care and IV fluids. Creatinine has come down from 7.2 to 3.8. He has had two benign urine analyzes, which were negative for protein and blood which all but ruled out glomerular disease and his renal ultrasound was likewise fairly unremarkable. I have advised him that he can be discharged today. However, he needs to keep up with oral hydration of at least 3 liters per day and needs to follow up in the nephrology office for repeat renal panel within one week I have additionally advised him that he should avoid all NSAIDs and strenuous physical activity/exercise until his follow-up appointment so we can see how much further his renal function has recovered. DISPOSITION: The patient is acceptable for discharge today from a nephrology point of view. Discussed with the patient and with Dr. Fair. Advised at least 3 liters oral fluid intake daily, avoidance of NSAIDs, avoid strenuous physical activity and prompt followup in the nephrology office within one week. All questions were answered.
--- NOTE | 2018-10-04 08:08 | DS.PDOC ---
Discharge Summary General Date of Admission Sep 30, 2018 at 01:03 Date of Discharge 10/03/18 Specialist/Consultants Involve: MARTY ALEMAN DO Discharge Summary PROCEDURES PERFORMED DURING STAY: none ADMITTING DIAGNOSES: 1. Acute renal failure DISCHARGE DIAGNOSES: 1) Nonoliguric acute kidney injury 2) Acute Renal Failure with Multifactorial Etiology Including: Diarrhea with Dehydration, Ibuprofen Use, Excess Energy Drink / Coffee Consumption 3) Hypernatremia - resolved 4) Nonobstructing kidney stones - stable 5) Hyperkalemia - RESOLVED 6) GERD COMPLICATIONS/CHIEF COMPLAINT: ARF. HISTORY OF PRESENT ILLNESS:43-year-old male with past medical history of GERD and seasonal allergies presented to the ER with a chief complaint of bilateral flank pain. He was found to have renal failure. see H&P for details HOSPITAL COURSE: Patient was admitted and given IVF. There was no signs of rhabdo as CPK normal. Nephrology consulted and creatinine slowly improved. It is unknown his baseline and whether this was acute on chronic or all acute renal failure. He is being discharged home in stable and improving condition with strict instructions to avoid ALL NSAIDS, not to participate in training exercises until cleared by nephrology, drink 3 liter water daily and will have repeat lab in 1 week prior to follow up with nephrology. He had no further diarrhea while in hospital. DISCHARGE MEDICATIONS: Please see below. ALLERGIES: Please see below. PHYSICAL EXAMINATION ON DISCHARGE: VITAL SIGNS: Please see below. General: pleasant, NAD AAOx3 HRRR LCTA no W/R/R, no CVA tenderness Ext: no edema LABORATORY DATA: Please see below. IMAGING: CXR : normal Renal US: Question tiny intrarenal calculus right kidney otherwise negative urinary tract sonography. CT ABD/PEL:IMPRESSION: Punctate nonobstructing right lower pole renal calculus. No ureteral or obstructing calculi are seen. No free air, free fluid or focal mesenteric inflammation. ACTIVITY: no training exercises DIET: as tolerated. avoid high K foods, drink 3 liter water daily DISCHARGE PLAN: discharge home DISCHARGE INSTRUCTIONS: 1. follow up nephrology in 1 week 2. BMP in 1 week 3. drink 3 liter water daily 4. no NSAIDS, caffeine, energy drinks 5. no training exercises until cleared by nephrology DISCHARGE CONDITION: stable TIME SPENT ON DISCHARGE: 20 minutes. Vital Signs/I&Os Vital Signs Date Time Temp Pulse Resp B/P (MAP) Pulse Ox O2 Delivery O2 Flow Rate FiO2 10/03/18 06:00 97.8 65 15 137/84 (101) 97 09/30/18 07:52 Room Air I&O- Last 24 Hours up to 6 AM 10/03/18 06:00 Intake Total 2078 ml Output Total 2900 ml Balance -822 ml Laboratory Data Labs 24H Laboratory Tests 2 10/03/18 05:40: Nucleated Red Blood Cells % (auto) 0.0, Anion Gap 7L, Glomerular Filtration Rate 18.3L, Blood Urea Nitrogen 29H, Creatinine 3.89H, Sodium Level 144, Potassium Level 4.3, Chloride Level 105, Carbon Dioxide Level 32, Calcium Level 8.7, Aspartate Amino Transf (AST/SGOT) 15, Alanine Aminotransferase (ALT/SGPT) 10L, Alkaline Phosphatase 78, Total Bilirubin 0.5, Total Protein 6.9, Albumin 2.9L, Albumin/Globulin Ratio 0.73L CBC/BMP Laboratory Tests 10/03/18 05:40 Red Blood Count 3.99 L, Mean Corpuscular Volume 89.5, Mean Corpuscular Hemoglobin 29.3, Mean Corpuscular Hemoglobin Concent 32.8, Red Cell Distribution Width 12.7, Calcium Level 8.7, Aspartate Amino Transf (AST/SGOT) 15, Alanine Aminotransferase (ALT/SGPT) 10 L, Alkaline Phosphatase 78, Total Bilirubin 0.5, Total Protein 6.9, Albumin 2.9 L Microbiology Microbiology 09/30/18 Group A Streptococcus Screen (RENÉE) - Final, Complete 09/30/18 Group A Streptococcus Screen (RENÉE) - Final, Complete Discharge Medications Scheduled Nicotine (Nicotine Patch) 14 Mg Patch.td24, 1 PATCH TD QHS Omeprazole (Omeprazole) 20 Mg Capsule.dr, 20 MG PO DAILY, (Reported) Scheduled PRN Loratadine (Claritin) 10 Mg Capsule, 10 MG PO DAILY PRN for allergies Allergies Coded Allergies: No Known Allergies (Unverified , 02/28/17) REAGAN PHILLIPS DO Oct 03, 2018 13:37
[2018-10-04 12:27] LABS: UPEP INTERPRETATION NO M-SPIKE NOTED; URINE VOLUME RANDOM ML
== END 2018-10-03 14:31 | disposition home or self-care (01) | DRG 683 ==
LOC: M ED 22:15 → M ED INP 09-30 01:03 → M PED 09-30 09:10 → M MSPAV 09-30 11:25
PROVIDERS: ADMIT Internal Medicine; ATTEND Family Medicine
DX: N17.9 Acute kidney failure, unspecified (principal); E87.0 Hyperosmolality and hypernatremia; E87.2 Acidosis; R19.7 Diarrhea, unspecified; E86.0 Dehydration; N20.0 Calculus of kidney; K21.9 Gastro-esophageal reflux disease without esophagitis; E83.51 Hypocalcemia

== ENCOUNTER → 2018-09-29 | Outpatient (CLI) | payer OTHER ==
[~2018-09-29] MED LIST changes: +CLAR10CA3 PO; +CLAR5TAB7 PO; -METHACHOLINE KIT (J7674) INH ONE; +NICO14PA TD; +OMEP10CASR PO; +OMEP1CAP73 PO
[2018-09-29 19:14] LABS: BASO % 0.3 % (0.0-1.0); EOS # 0.1 10^3/uL (0.0-0.50); EOS % 0.6 % (0.0-3.0); HEMATOCRIT 39.5 % (42.0-52.0); HEMOGLOBIN 13.3 g/dl (13.5-17.5); LYMPH % 19.6 % (24.0-44.0); MEAN CORPUSCULAR HEMOGLOBIN 30.2 pg (27.0-33.0); MEAN CORPUSCULAR HGB CONC 33.7 g/dl (32.0-36.5); MEAN CORPUSCULAR VOLUME 89.6 fl (80.0-96.0); MONO # 1.6 10^3/uL (0.0-0.8); MONO % 10.3 % (0.0-5.0); NEUTROPHILS # 10.4 10^3/uL (1.8-7.7); NEUTROPHILS % 68.9 % (36.0-66.0); PLATELET COUNT, AUTOMATED 270 10^3/uL (150-450); RED BLOOD COUNT 4.41 10^6/uL (4.30-6.10); WHITE BLOOD COUNT 15.1 10^3/uL (4.0-10.0)
[2018-09-29 19:52] LABS: ALBUMIN 3.6 GM/DL (3.2-5.2); BILIRUBIN,TOTAL 0.2 MG/DL (0.2-1.0); CALCIUM LEVEL 8.5 MG/DL (8.5-10.1); CREATININE FOR GFR 7.28 MG/DL (0.70-1.30); GLOMERULAR FILTRATION RATE 8.9 (>60); POTASSIUM SERUM 5.4 MEQ/L (3.5-5.1); TOTAL PROTEIN 7.4 GM/DL (6.4-8.2)
== END ==
LOC: M LAB 18:33
PROVIDERS: ATTEND Nurse Practitioner Family
DX: R31.9 Hematuria, unspecified (principal); R80.9 Proteinuria, unspecified

== ENCOUNTER → 2018-09-29 | Outpatient (REF) | payer OTHER ==
[~2018-09-29] MED LIST changes: -OMEP1CAP73 PO; +OMEP20CA4 PO
== END ==
LOC: M SFHCLERA 17:59
PROVIDERS: ATTEND Nurse Practitioner Family
DX: R31.9 Hematuria, unspecified (principal); R80.9 Proteinuria, unspecified; Z53.9 Procedure and treatment not carried out, unspecified reason